=== PATIENT | female | born 1945 | race Caucasian/White ===

== ENCOUNTER 2022-11-14 08:57 | Day surgery (SDC) | payer MEDICARE, SELFPAY ==
[2022-11-14] MEDS: TETRACAINE 0.5% OPHTH 1 DROP EYE-LEFT ×2 (09:26→09:34)
[2022-11-14] MEDS: KETOROLAC OPHTH 0.5% 1 DROP EYE-LEFT ×2 (09:32→09:45)
[2022-11-14 09:46] VITALS: BP 128/77; PULSE 81; RESP 16; TEMP 37.2; O2SAT 95; BMI 28.2
[2022-11-14] MEDS: TETRACAINE 0.5% OPHTH 2 DROP EYE-LEFT (10:17)
[2022-11-14] MEDS: BALANCED SALT IRRIG SOLN 15 ML EYE-LEFT (10:21)
--- NOTE | 2022-11-14 10:21 | P.ANES_ITS ---
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
[2022-11-14 10:49] VITALS: BP 140/70; PULSE 78; RESP 16; TEMP 36.7; O2SAT 98
--- NOTE | 2022-11-14 10:53 | W.PM.OPTPROC ---
Procedure Note Date of procedure: 11/14/22 Will [facility] bill your pro fee for this procedure?: Yes Procedure Description: SURGEON: ROSANNE COUGHLIN MD PREOPERATIVE DIAGNOSIS: NUCLEAR SCLEROTIC CATARACT, LEFT EYE. POSTOPERATIVE DIAGNOSIS: NUCLEAR SCLEROTIC CATARACT, LEFT EYE. NAME OF OPERATION: PHACOEMULSIFICATION OF CATARACT WITH POSTERIOR CHAMBER INTRAOCULAR LENS IMPLANTATION IN THE LEFT EYE. ANESTHESIA: TOPICAL. ESTIMATED BLOOD LOSS: LESS THAN 2 CC. COMPLICATIONS: NONE. PATHOLOGY SPECIMEN: NONE. INDICATIONS: SEE CONSULT NOTE FOR DETAILS. THE RISKS, BENEFITS AND ALTERNATIVES OF THE PROCEDURE WERE EXPLAINED TO THE PATIENT, WHO ELECTED TO PROCEED AND SIGNED INFORMED CONSENT TO DO SO. PROCEDURE: THE PATIENT WAS BROUGHT TO THE PRE-HOLDING AREA WHERE THE LEFT EYE WAS IDENTIFIED THE OPERATIVE EYE. I PLACED MY INITIALS ABOVE THIS EYE. THE PATIENT RECEIVED EYE DROPS CONSISTING OF 0.5% TETRACAINE, 1% TROPICAMIDE, 10% PHENYLEPHRINE, AND 0.5% KETOROLAC. THE PATIENT WAS THEN BROUGHT TO THE OPERATING ROOM WHERE THE LEFT EYE WAS AGAIN IDENTIFIED THE OPERATIVE EYE. THE EYE WAS PREPPED WITH BETADINE AND DRAPED IN THE USUAL STERILE OPHTHALMIC FASHION. A #15 SUPER-SHARP BLADE WAS USED TO CREATE A PARACENTESIS SITE. 1% NON-PRESERVED INTRACAMERAL LIDOCAINE WAS INJECTED INTO THE ANTERIOR CHAMBER. ENDOCOAT WAS INJECTED INTO THE ANTERIOR CHAMBER. A 2.4 MM KERATOME WAS USED TO CREATE A THREE-PLANE SELF-SEALING INCISION 1 MM ANTERIOR TO THE TEMPORAL LIMBUS. A CYSTOTOME WAS USED TO CREATE AN ANTERIOR CAPSULAR LEAFLET. THE UTRATA FORCEPS WERE USED TO EXTEND THIS TO FORM A CONTINUOUS CURVILINEAR CAPSULORRHEXIS. HYDRODISSECTION WAS PERFORMED. THE CATARACT WAS REMOVED WITH PHACOEMULSIFICATION USING THE [id number] TECHNIQUE. THE IRRIGATION AND ASPIRATION TIP WAS USED TO REMOVE THE REMAINING CORTEX. HEALON WAS INJECTED INTO THE CAPSULAR BAG. AN MANNY ZCB00 INTRAOCULAR LENS OF 22.5 DIOPTERS WAS INJECTED INTO THE CAPSULAR BAG. THE IRRIGATION AND ASPIRATION TIP WAS USED TO REMOVE THE REMAINING VISCOELASTIC. BALANCED SALT SOLUTION ON A CANNULA WAS USED TO HYDRATE THE WOUND, AND THE WOUND WAS FOUND TO BE WATERTIGHT. THE PUPIL WAS NOTED TO BE ROUND. DISPOSITION: THE PATIENT WAS TAKEN TO THE RECOVERY ROOM AND DISCHARGED TO HOME IN STABLE CONDITION. THE PATIENT WAS INSTRUCTED TO CALL ME OR GO TO THE EMERGENCY DEPARTMENT WITH ANY SUDDEN CHANGE, INCLUDING DRAMATIC LOSS OF VISION, SEVERE PAIN IN THE EYE OR EYEBROW REGION, NAUSEA, OR VOMITING. THE PATIENT WILL FOLLOW UP IN THE CLINIC TOMORROW MORNING.
--- NOTE | 2022-11-14 11:07 | W.ANESCHARGE ---
Anesthesia Charges Start Date/Time Anesthesia Start Date: 11/14/22 Anesthesia Start Time: 10:14 Stop Date/Time Anesthesia Stop Date: 11/14/22 Anesthesia Stop Time: 10:45 Summary Extremes of Age - Over 70 or under 1: MDA
== END 2022-11-14 11:13 | disposition home or self-care (01) ==
PROVIDERS: PCP Family Medicine; Visit Provider Ophthalmology
PROC: (CPT 66984; principal; 2022-11-14 09:00)
DX: H25.12 Age-related nuclear cataract, left eye (principal)
CPT/HCPCS: 66984; 00142; 99100; A9270; J2250; J3010; V2632

== ENCOUNTER 2022-11-28 09:47 | Day surgery (SDC) | payer MEDICARE, SELFPAY ==
[2022-11-28] MEDS: TETRACAINE 0.5% OPHTH 1 DROP EYE-RIGHT ×2 (09:45→09:50)
[2022-11-28] MEDS: KETOROLAC OPHTH 0.5% 1 DROP EYE-RIGHT ×2 (09:45→09:50)
[2022-11-28 10:11] VITALS: BP 115/72; PULSE 99; RESP 18; TEMP 36.6; O2SAT 98; BMI 28.2
--- NOTE | 2022-11-28 10:20 | SUR.PREOP ---
The eye drops brought by the patient (Ketorolac, Oflaxacin and Prednisolone) are examined and I have determined they are labeled by the patient's pharmacy for this patient as prescribed by the surgeon. The bottles are intact, recently obtained and appear to be correct.
[2022-11-28] MEDS: SODIUM CHLORIDE 0.9 % (FLUSH) 10 ML SYRINGE IVF (10:30)
--- NOTE | 2022-11-28 10:51 | W.ANESCHARGE ---
Anesthesia Charges Start Date/Time Anesthesia Start Date: 11/28/22 Anesthesia Start Time: 11:07 Stop Date/Time Anesthesia Stop Date: 11/28/22 Anesthesia Stop Time: 11:42 Summary Extremes of Age - Over 70 or under 1: MDA
[2022-11-28] MEDS: TETRACAINE 0.5% OPHTH 2 DROP EYE-RIGHT (11:10)
[2022-11-28] MEDS: BALANCED SALT IRRIG SOLN 15 ML EYE-RIGHT (11:16)
--- NOTE | 2022-11-28 11:20 | W.ANESCHARGE ---
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
[2022-11-28 11:38] VITALS: BP 127/79; PULSE 96; RESP 16; TEMP 37.2; O2SAT 98
--- NOTE | 2022-11-28 11:46 | W.PM.OPTPROC ---
Procedure Note Date of procedure: 11/28/22 Will [facility] bill your pro fee for this procedure?: Yes Procedure Description: SURGEON: Radha William MD PREOPERATIVE DIAGNOSIS: Nuclear sclerotic cataract, right eye. POSTOPERATIVE DIAGNOSIS: Nuclear sclerotic cataract, right eye. NAME OF OPERATION: Phacoemulsification of cataract with posterior chamber intraocular lens implantation in the right eye. ANESTHESIA: Topical. ESTIMATED BLOOD LOSS: Less than 2 cc. COMPLICATIONS: None. PATHOLOGY SPECIMEN: None. INDICATIONS: See consult note for details. The risks, benefits and alternatives of the procedure were explained to the patient, who elected to proceed and signed informed consent to do so. PROCEDURE: The patient was brought to the pre-holding area where the right eye was identified as the operative eye. I placed my initials above this eye. The patient received eye drops consisting of 0.5% tetracaine, 1% tropicamide, 10% phenylephrine, and 0.5% ketorolac. The patient was then brought to the operating room where the right eye was again identified as the operative eye. The eye was prepped with Betadine and draped in the usual sterile ophthalmic fashion. A #15 super-sharp blade was used to create a paracentesis site. 1% non-preserved intracameral lidocaine was injected into the anterior chamber. Endocoat was injected into the anterior chamber. A 2.4 mm keratome was used to create a three-plane self-sealing incision 1 mm anterior to the temporal limbus. A cystotome was used to create an anterior capsular leaflet. The Utrata forceps were used to extend this to form a continuous curvilinear capsulorrhexis. Hydrodissection was performed. The cataract was removed with phacoemulsification using the [id number] technique. The irrigation and aspiration tip was used to remove the remaining cortex. Healon was injected into the capsular bag. An MANNY ZCB00 intraocular lens of 23.5 diopters was injected into the capsular bag. The irrigation and aspiration tip was used to remove the remaining viscoelastic. Balanced salt solution on a cannula was used to hydrate the wound, and the wound was found to be watertight. The pupil was noted to be round. DISPOSITION: The patient was taken to the recovery room and discharged to home in stable condition. The patient was instructed to call me or go to the emergency department with any sudden change, including dramatic loss of vision, severe pain in the eye or eyebrow region, nausea, or vomiting. The patient will follow up in the clinic tomorrow morning.
== END 2022-11-28 12:13 | disposition home or self-care (01) ==
LOC: OR 09:47
PROVIDERS: PCP Family Medicine; Visit Provider Ophthalmology
PROC: (CPT 66984; principal; 2022-11-28 09:45)
DX: H25.11 Age-related nuclear cataract, right eye (principal)
CPT/HCPCS: 66984; 00142; 99100; A9270; J2250; J3010; V2632

== ENCOUNTER 2023-01-29 13:05 | Emergency (ER) | payer MEDICARE, SELFPAY ==
[2023-01-29 13:19] VITALS: BP 121/75; PULSE 95; RESP 18; TEMP 36.6; O2SAT 100
--- NOTE | 2023-01-29 13:43 | ED.GENADULT ---
HPI - General Adult General Chief complaint: Back Injury/Pain Stated complaint: Weak, multiple falls across the last days Time Seen by Provider: 01/29/23 13:42 History of Present Illness HPI narrative: presents with daughter. I'm having trouble with my sciatic pain. daughter states she has been falling. pt states she does feel safe in her own home. concern of buttock and leg pain 78-year-old woman presenting to the emergency department along with daughter with concern of falls and weakness. Noting flare of sciatic pain. She says that this is going down her buttock all the way to her foot. Apparently was diagnosed maybe a year ago with sciatic pain however there was what seems to be some origin in the lumbar spine where she was discovered to have had a cyst that was drained. Also is receiving weekly chemotherapy. Is not having dysuria frequency though few months ago did have a urinary tract infection which was contributing to some confusion. Is not describing diarrhea. Does have pregabalin that has continued to take since sciatic diagnosis. It denies hitting her head recently or other areas of pain related to any falls. Diagnosis of breast cancer as noted above. Also on exam I note some darkening around the left eye apparently this is a melanoma per their report. Related Data Home Medications Medication Instructions Recorded Confirmed acetaminophen 500 mg tablet 500 mg PO QID PRN 11/13/22 11/14/22 calcium carbonate 500 mg calcium 500 mg PO DAILY 11/13/22 11/14/22 (1,250 mg) tablet cholecalciferol (vitamin D3) 125 125 mcg PO DAILY 11/13/22 11/14/22 mcg (5,000 unit) tablet cyanocobalamin (vitamin B-12) 1,000 mcg PO DAILY 11/13/22 11/14/22 1,000 mcg tablet imiquimod 5 % topical cream packet 1 applic topical DAILY 11/13/22 11/14/22 levothyroxine 100 mcg tablet 100 mcg PO QAM 11/13/22 01/29/23 loperamide 2 mg capsule 2 mg PO QID 11/13/22 11/28/22 pantoprazole 40 mg tablet,delayed 40 mg PO DAILY 11/13/22 11/14/22 release pregabalin 100 mg capsule 100 mg PO BID 11/13/22 01/29/23 tramadol 50 mg tablet 50 mg PO Q6H PRN 11/13/22 11/14/22 Allergies Allergy/AdvReac Type Severity Reaction Status Date / Time No Known Drug Allergies Allergy Verified 11/28/22 10:01 Review of Systems Status of ROS: Reports: 6 or more systems reviewed and unremarkable except as noted in History and below [facility] Medical History Pre-diabetes ?R73.03 - Prediabetes (ICD-10) Cognitive and behavioral changes ?R41.89 - Other symptoms and signs involving cognitive functions and awareness (ICD-10) ?R46.89 - Other symptoms and signs involving appearance and behavior (ICD-10) Colitis ?K52.9 - Noninfective gastroenteritis and colitis, unspecified (ICD-10) Acute GI bleeding ?K92.2 - Gastrointestinal hemorrhage, unspecified (ICD-10) Carcinoma of left breast ?C50.912 - Malignant neoplasm of unspecified site of left female breast (ICD-10) Hyperopia of both eyes with regular astigmatism and presbyopia ?H52.03 - Hypermetropia, bilateral (ICD-10) ?H52.223 - Regular astigmatism, bilateral (ICD-10) ?H52.4 - Presbyopia (ICD-10) GERD (gastroesophageal reflux disease) ?K21.9 - Gastro-esophageal reflux disease without esophagitis (ICD-10) Hyperlipidemia ?E78.5 - Hyperlipidemia, unspecified (ICD-10) 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 - Autoimmune thyroiditis (ICD-10) Drusen (degenerative) of macula, unspecified eye ?H35.369 - Drusen (degenerative) of macula, unspecified eye (ICD-10) Surgical History History of bilateral mastectomy ?Z90.13 - Acquired absence of bilateral breasts and nipples (ICD-10) History of hysterectomy ?Z90.710 - Acquired absence of both cervix and uterus (ICD-10) History of cholecystectomy ?Z90.49 - Acquired absence of other specified parts of digestive tract (ICD-10) H/O breast augmentation ?Z98.82 - Breast implant status (ICD-10) History of bladder repair surgery ?Z98.890 - Other specified postprocedural states (ICD-10) History of appendectomy ?Z90.49 - Acquired absence of other specified parts of digestive tract (ICD-10) Social History Smoking Status: Former smoker Do you use any of these nicotine containing products: None Second hand tobacco smoke exposure: No How often do you have a drink containing alcohol: never AUDIT-C Alcohol total score: 0 Non-prescribed substance use: denies use Caffeine: Yes Are you using contraception or practicing any form of control: No service: No Exam Narrative: Exam Narrative: Pleasant. NAD. Seems fatigued. Answering questions little more slowly methodically. Breathing easily. Lungs appear to be clear although I thought I caught some clearing crepitus in the left midlung field. Oropharynx is moist. There is this irregular darkening in the skin to the lower left of the eye/outer zygomatic arch area. Head covered by stocking cap. Appears atraumatic other than lesion is noted above. Nerves 2 through 12 are intact. Heart in elevated rate but regular rhythm. Abdomen is protuberant soft and nontender. Does have some reproducible mild discomfort over the sacrum. No deformity appreciated. No buttock/piriformis area pain. Straight leg raise appears to be negative. Stiff in musculoskeletal testing almost rigid like Parkinson's. Const: Vital Signs, click to edit/add: Vital Signs - 24 hr 01/29/23 13:19 Temperature 97.8 F Pulse Rate [Right Pulse Oximeter] 95 Respiratory Rate 18 Blood Pressure [Ri ght Upper Arm] 121/75 Pulse Oximetry 100 Oxygen Delivery Me thod Room Air Documenting provider has reviewed patient's vital signs: yes Course Vital Signs Vital signs: Initial Vital Signs Temperature 97.8 F 01/29/23 13:19 Temperature Source Temporal Artery Scan 01/29/23 13:19 Pulse Rate 95 01/29/23 13:19 Respiratory Rate 18 01/29/23 13:19 Blood Pressure 121/75 01/29/23 13:19 Blood Pressure Mean 90 01/29/23 13:19 Blood Pressure Position Sitting 01/29/23 13:19 Pulse Oximetry 100 01/29/23 13:19 Oxygen Delivery Method Room Air 01/29/23 13:19 Vital Signs Temperature 97.8 F 01/29/23 13:19 Pulse Rate 95 01/29/23 13:19 Respiratory Rate 18 01/29/23 13:19 Blood Pressure 121/75 01/29/23 13:19 Pulse Oximetry 100 01/29/23 13:19 Oxygen Delivery Method Room Air 01/29/23 13:19 Temperature 97.8 F 01/29/23 13:19 Pulse Rate 95 01/29/23 13:19 Respiratory Rate 18 01/29/23 13:19 Blood Pressure 121/75 01/29/23 13:19 Pulse Oximetry 100 01/29/23 13:19 Oxygen Delivery Method Room Air 01/29/23 13:19 Medications Administered Medications: Discontinued Medications Generic Name Dose Route Start Last Admin Trade Name Freq PRN Reason Stop Dose Admin Hydrocodone Bitart/Acetaminophen 2 tab 01/29/23 13:54 01/29/23 14:25 Hydrocodone-Acetamin 5-325 Mg 1 Tab PO 01/29/23 13:55 2 tab ONCE ONE Administration Heparin Sodium (Porcine) 500 unit 01/29/23 15:35 01/29/23 15:50 Heparin 500 Unit/5 Ml Syringe IVF 01/29/23 15:36 500 unit ONCE ONE Administration Sodium Chloride 1,000 mls @ 1,000 mls/hr 01/29/23 13:54 01/29/23 15:23 0.9 % Sodium Chloride 1000 Ml IV 01/29/23 14:53 Infused .Q1H ONE Infusion Medical Decision Making MDM Narrative Medical decision making narrative: Think would be prudent to look for electrolyte abnormalities other indication of infection as well. Urinalysis. This might be contributing to weakness or exacerbating affect of formally diagnosed ?sciatica?. This does seem though to originate higher in the chain i.e. the lumbar spine. Not sure that there is an area that I would want image otherwise outside of an MRI which I would not anticipate being able to obtain today. Will test with a couple tablets of Sassafras. Has had tramadol available in the past. Overall is improved during time in the emergency department treatment as above. Labs reviewed and reassuring without notable electrolyte abnormalities and pending urinalysis on departure See patient discharge plan Lab Data Lab results reviewed: Yes I reviewed the patient's lab results Labs: Lab Results 01/29/23 01/29/23 Range/Units 14:25 15:38 WBC 3.66 L (4.50-11.00) K/uL RBC 3.35 L (4.00-5.20) m/uL Hgb 10.8 L (12.0-16.0) gm/dL Hct 35.4 (33.0-51.0) % MCV 106 H (80-100) fL MCH 32 (26-34) pg MCHC 31 L (32-36) gm/dL RDW Coeff of [place] 14.2 (11.5-15.5) % Plt Count 312 (140-440) K/uL Neut % (Auto) 61.8 (42.0-72.0) % Lymph % (Auto) 17.2 L (20-44) % [facility] % (Auto) 15.0 H (0.0-11.0) % Eos % (Auto) 3.6 (0.0-7.0) % Baso % (Auto) 0.5 (0.0-3.0) % Neut # (Auto) 2.30 (1.7-7.0) K/uL Lymph # (Auto) 0.60 L (0.90-2.90) K/uL [facility] # (Auto) 0.50 (0.00-0.90) K/UL Eos # (Auto) 0.10 (0.00-0.50) K/uL Baso # (Auto) 0.00 (0.00-0.30) K/uL Abs Immat Gran (auto) 0.10 (0.00-0.30) K/uL Imm/Tot Granulo (auto) 1.9 % Diff Slide Review Acceptable Review (Acceptable) Sodium 138 (135-149) mmol/L Potassium 4.4 (3.6-5.1) mmol/L Chloride 106 (96-114) mmol/L Carbon Dioxide 24 (20-32) mmol/L Anion Gap 8 (7-15) mEq/L BUN 28 (7-30) mg/dL Creatinine 0.7 (0.5-1.5) mg/dL Estimated GFR 87 ml/min Glucose 67 (60-115) mg/dL Calcium 9.3 (8.4-10.6) mg/dL Magnesium 2.1 (1.5-2.6) mg/dL C-Reactive Protein 0.8 (0.5-1.0) mg/dL Urine Color Yellow (Yellow) Urine Appearance Cloudy A (Clear) Urine pH 5.5 (5.0-8.5) Ur Specific [place] 1.020 (1.000-1.030) Urine Protein Negative (Negative) Urine Glucose (UA) Negative (Negative) Urine Ketones Negative (Negative) Urine Blood Negative (Negative) Urine Nitrite Negative (Negative) Urine Bilirubin Negative (Negative) Urine Urobilinogen 0.2 (0.2-1.0) Ur Leukocyte Esterase 1+ A (Negative) Urine RBC 2-5 A (0-2) Urine WBC 25-50 A (0-5) Urine WBC Clumps Few A (None) Ur Squamous Epith Cells Moderate A (None-Few) Amorphous Sediment Few A (None) Urine Bacteria Moderate A (None) Coarse Granular Casts Few A (None) SARS-CoV-2 (PCR) Negative SARS-CoV-2 (Negative) Influenza Type A (PCR) Negative PCR FLU A (Negative) Influenza Type B (PCR) Negative PCR FLU B (Negative) RSV (PCR) Negative PCR RSV (Negative) Discharge Plan Discharge Clinical Impression: Radicular leg pain, Weakness Patient Disposition: Home w/ Parent or Adult Condition: Improved Additional Instructions: I would make follow-up with primary care provider or with whoever treated your back last time. Sassafras and prednisone from [facility]. Remember that each tablet of Sassafras contains 325 mg of acetaminophen. Can otherwise temporarily and maybe with a little food take up to 800 mg of ibuprofen per dose or up to 1000 mg of acetaminophen per dose. Alternative to the ibuprofen might be up to 500 mg naproxen 2 times daily. The Sassafras as an opiate can make you tired and constipated. Might want to take a tablet or 2 of senna to stimulate your bowels on the days that you are using the Sassafras. I will call you to discuss results of urinalysis if needed. Prescriptions: No Action loperamide 2 mg capsule 2 mg PO QID cyanocobalamin (vitamin B-12) 1,000 mcg tablet 1,000 mcg PO DAILY tramadol 50 mg tablet 50 mg PO Q6H PRN acetaminophen 500 mg tablet 500 mg PO QID PRN levothyroxine 100 mcg tablet 100 mcg PO QAM calcium carbonate 500 mg calcium (1,250 mg) tablet 500 mg PO DAILY imiquimod 5 % cream in packet 1 applic topical DAILY pantoprazole 40 mg tablet,delayed release (DR/EC) 40 mg PO DAILY pregabalin 100 mg capsule 100 mg PO BID cholecalciferol (vitamin D3) 125 mcg (5,000 unit) tablet 125 mcg PO DAILY Follow Up/Referrals: Lilliam Butler DO [Primary Care Provider] - Stand Alone Forms: [facility] Info Instructions
[2023-01-29] MEDS: HYDROCODONE-ACETAMIN 5-325 MG 1 TAB 2 TAB PO (14:25)
[2023-01-29] MEDS: 0.9 % SODIUM CHLORIDE 1000 ml 1,000 ML IV (14:35)
[2023-01-29 14:41] LABS: Basophils Percent Auto 0.5 % (0.0-3.0); Eosinophils Percent Auto 3.6 % (0.0-7.0); Hematocrit 35.4 % (33.0-51.0); Hemoglobin* 10.8 gm/dL (12.0-16.0); Immature Granulocytes Pct Auto 1.9 %; Lymphocytes Percent Auto 17.2 % (20-44); Mean Corpuscular HGB Conc 31 gm/dL (32-36); Mean Corpuscular Hemoglobin 32 pg (26-34); Mean Corpuscular Volume 106 fL (80-100); Neutrophils Percent Auto 61.8 % (42.0-72.0); Platelet Count* 312 K/uL (140-440); RDW Coefficient of Variation % 14.2 % (11.5-15.5); Red Blood Count 3.35 m/uL (4.00-5.20); White Blood Count* 3.66 K/uL (4.50-11.00)
[2023-01-29 14:43] LABS: Slide Review Reflex Yes
[2023-01-29 14:59] LABS: Chloride* 106 mmol/L (96-114); Potassium* 4.4 mmol/L (3.6-5.1); Sodium* 138 mmol/L (135-149)
[2023-01-29 15:02] LABS: Anion Gap 8 mEq/L (7-15); Blood Urea Nitrogen* 28 mg/dL (7-30); Carbon Dioxide* 24 mmol/L (20-32); Creatinine* 0.7 mg/dL (0.5-1.5); Estimated Glomerular Filt Rate 87 ml/min
[2023-01-29 15:03] LABS: Calcium* 9.3 mg/dL (8.4-10.6); Glucose* 67 mg/dL (60-115); Magnesium* 2.1 mg/dL (1.5-2.6)
[2023-01-29 15:04] LABS: Slide Review Acceptable Review (Acceptable)
[2023-01-29 15:05] LABS: C Reactive Protein* 0.8 mg/dL (0.5-1.0)
[2023-01-29 15:18] LABS: PCR FLU A Negative PCR FLU A (Negative); PCR FLU B Negative PCR FLU B (Negative); PCR RSV Negative PCR RSV (Negative); SARS PCR* Negative SARS-CoV-2 (Negative)
[2023-01-29] MEDS: HEPARIN 500 UNIT/5 ML SYRINGE IVF (15:50)
[2023-01-29 15:52] LABS: Appearance Urine Cloudy (Clear); Bilirubin Urine Negative (Negative); Blood Urine Negative (Negative); Color Urine Yellow (Yellow); Glucose Urine Negative (Negative); Ketones Urine Negative (Negative); Leukocyte Esterase Urine 1+ (Negative); Nitrite Urine Negative (Negative); Protein Urine Negative (Negative); Urobilinogen Urine 0.2 (0.2-1.0); pH Urine 5.5 (5.0-8.5)
[2023-01-29 16:12] LABS: Squamous Epithelial Cell Urine Moderate (None-Few); WBC Clumps Urine Few; WBC Urine 25-50 (0-5)
[2023-01-29 16:13] LABS: Amorphous Sediment Urine Few; Bacteria Urine Moderate; Coarse Granular Casts Urine Few
== END 2023-01-29 15:53 | disposition home or self-care (01) ==
PROVIDERS: Emergency Provider Family Medicine; PCP Family Medicine
DX: M54.16 Radiculopathy, lumbar region (principal)
CPT/HCPCS: 36415; 80048; 81001; 83735; 85025; 86140; 87086; 87631; 95992; 99283; 99284; A9270; J1642; J7030

== ENCOUNTER 2023-06-06 06:44 | Outpatient (CLI) | payer MEDICARE, SELFPAY | END 2023-06-06 06:45 | disposition home or self-care (01) | LOC: AMB 06-09 11:18 | PROVIDERS: PCP Family Medicine; Visit Provider Family Medicine | DX: R41.82 Altered mental status, unspecified (principal) | CPT/HCPCS: A0425; A0429 ==

== ENCOUNTER 2023-06-06 07:33 | Emergency (ER) | payer MEDICARE, SELFPAY ==
[2023-06-06 07:38] VITALS: BP 121/70; PULSE 107; RESP 18; TEMP 36.4; O2SAT 93; BMI 25.7
--- NOTE | 2023-06-06 08:47 | ED.GENADULT ---
HPI - General Adult General Chief complaint: Fall/Minor Trauma Stated complaint: Fall Time Seen by Provider: 06/06/23 08:09 History of Present Illness HPI narrative: Patient is a 78-year-old woman who was on hospice secondary to metastatic breast cancer who presents after being found on the floor today at home. She is a DNR DNI comfort cares only and states she is not injured is not having any pain. There has been increasing conflict between she and her daughter who provides primary care for the patient at home. Patient also has home hospice services. Patient states she is fine would like to be allowed to return home without further evaluation. She is on stable medications and is not certain why she stumbled last night but does not feel like she is injured in any way. She did not hit her head and did not lose consciousness. Related Data Home Medications Medication Instructions Recorded Confirmed acetaminophen 500 mg tablet 500 mg PO QID PRN 11/13/22 06/06/23 calcium carbonate 500 mg PO DAILY 11/13/22 06/06/23 cholecalciferol (vitamin D3) 125 125 mcg PO DAILY 11/13/22 06/06/23 mcg (5,000 unit) tablet cyanocobalamin (vitamin B-12) 1,000 mcg PO DAILY 11/13/22 06/06/23 1,000 mcg tablet imiquimod 5 % topical cream packet 1 applic topical DAILY 11/13/22 11/14/22 levothyroxine 100 mcg tablet 100 mcg PO QAM 11/13/22 01/29/23 loperamide 2 mg capsule 2 mg PO QID 11/13/22 11/28/22 pantoprazole 40 mg tablet,delayed 40 mg PO DAILY 11/13/22 11/14/22 release pregabalin 100 mg capsule 100 mg PO BID 11/13/22 06/06/23 tramadol 50 mg tablet 50 mg PO Q6H PRN 11/13/22 06/06/23 dexamethasone 4 mg tablet 4 mg PO DAILY 06/06/23 06/06/23 haloperidol 0.5 mg tablet 0.25 mg PO Q4H 06/06/23 06/06/23 morphine 15 mg tablet,extended 15 mg PO Q12H 06/06/23 06/06/23 release morphine concentrate 100 mg/5 mL 5 mg PO Q3H 06/06/23 06/06/23 (20 mg/mL) oral solution nitrofurantoin 100 mg PO DAILY 06/06/23 06/06/23 monohydrate/macrocrystals 100 mg capsule propranolol 10 mg tablet 10 mg PO Q12H 06/06/23 06/06/23 sennosides 8.6 mg tablet (senna) 8.6 mg PO DAILY 06/06/23 06/06/23 Allergies Allergy/AdvReac Type Severity Reaction Status Date / Time lorazepam [From Ativan] AdvReac Severe Verified 06/06/23 08:06 Review of Systems Status of ROS: Reports: 10 or more systems reviewed and unremarkable except as noted in History and below [facility] Medical History Pre-diabetes ?R73.03 - Prediabetes (ICD-10) Cognitive and behavioral changes ?R41.89 - Other symptoms and signs involving cognitive functions and awareness (ICD-10) ?R46.89 - Other symptoms and signs involving appearance and behavior (ICD-10) Colitis ?K52.9 - Noninfective gastroenteritis and colitis, unspecified (ICD-10) Acute GI bleeding ?K92.2 - Gastrointestinal hemorrhage, unspecified (ICD-10) Carcinoma of left breast ?C50.912 - Malignant neoplasm of unspecified site of left female breast (ICD-10) Hyperopia of both eyes with regular astigmatism and presbyopia ?H52.03 - Hypermetropia, bilateral (ICD-10) ?H52.223 - Regular astigmatism, bilateral (ICD-10) ?H52.4 - Presbyopia (ICD-10) GERD (gastroesophageal reflux disease) ?K21.9 - Gastro-esophageal reflux disease without esophagitis (ICD-10) Hyperlipidemia ?E78.5 - Hyperlipidemia, unspecified (ICD-10) 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 - Autoimmune thyroiditis (ICD-10) Drusen (degenerative) of macula, unspecified eye ?H35.369 - Drusen (degenerative) of macula, unspecified eye (ICD-10) Surgical History History of bilateral mastectomy ?Z90.13 - Acquired absence of bilateral breasts and nipples (ICD-10) History of hysterectomy ?Z90.710 - Acquired absence of both cervix and uterus (ICD-10) History of cholecystectomy ?Z90.49 - Acquired absence of other specified parts of digestive tract (ICD-10) H/O breast augmentation ?Z98.82 - Breast implant status (ICD-10) History of bladder repair surgery ?Z98.890 - Other specified postprocedural states (ICD-10) History of appendectomy ?Z90.49 - Acquired absence of other specified parts of digestive tract (ICD-10) Social History Smoking Status: Former smoker Do you use any of these nicotine containing products: None Second hand tobacco smoke exposure: No How often do you have a drink containing alcohol: never AUDIT-C Alcohol total score: 0 Non-prescribed substance use: denies use Caffeine: Yes Are you using contraception or practicing any form of control: No service: No Exam Narrative: Exam Narrative: EXAM GENERAL: Patient appears comfortable and well. EYES: No scleral icterus. LYMPH: No supraclavicular or cervical lymphadenopathy. SKIN: Visible skin seen during exam normal or with benign process only. EXT: No dependent lower extremity pedal edema. HEART: Regular rate and rhythm with no murmurs, rubs, or gallops. LUNGS: Clear to auscultation bilaterally with no crackles or wheezes. ABD: Soft, non tender, non distended. PSYCH: Good eye contact, speech is not pressured. Const: Vital Signs, click to edit/add: Vital Signs - 24 hr 06/06/23 07:38 Temperature 97.5 F L Pulse Rate [Left P ulse Oximeter] 107 H Respiratory Rate 18 Blood Pressure [Le ft Upper Arm] 121/70 Pulse Oximetry 93 Oxygen Delivery Me thod Room Air Course Course ED Course: Patient seen examined. Patient requests no further testing but is able to ambulate on her normal baseline with no new focal neurologic defects. Vital Signs Vital signs: Initial Vital Signs Temperature 97.5 F L 06/06/23 07:38 Temperature Source Temporal Artery Scan 06/06/23 07:38 Pulse Rate 107 H 06/06/23 07:38 Pulse Rhythm Regular 06/06/23 07:38 Pulse Strength 3+ Normal 06/06/23 07:38 Respiratory Rate 18 06/06/23 07:38 Blood Pressure 121/70 06/06/23 07:38 Blood Pressure Mean 87 06/06/23 07:38 Blood Pressure Position Sitting 06/06/23 07:38 Pulse Oximetry 93 06/06/23 07:38 Oxygen Delivery Method Room Air 06/06/23 07:38 Vital Signs Temperature 97.5 F L 06/06/23 07:38 Pulse Rate 107 H 06/06/23 07:38 Respiratory Rate 18 06/06/23 07:38 Blood Pressure 121/70 06/06/23 07:38 Pulse Oximetry 93 06/06/23 07:38 Oxygen Delivery Method Room Air 06/06/23 07:38 Temperature 97.5 F L 06/06/23 07:38 Pulse Rate 107 H 06/06/23 07:38 Respiratory Rate 18 06/06/23 07:38 Blood Pressure 121/70 06/06/23 07:38 Pulse Oximetry 93 06/06/23 07:38 Oxygen Delivery Method Room Air 06/06/23 07:38 Medical Decision Making MDM Narrative Medical decision making narrative: Patient is 78-year-old woman with known history of metastatic breast cancer who presents after being found on the floor at home. Patient requests no further testing and is at her baseline with no defects and no pain. After a brief conversation with her daughter about the care that is being provided at home I do feel like Kavitha is in a safe situation and will be discharging her to her daughter's care. Differential diagnosis includes but not limited to subdural hematoma epidural hematoma subarachnoid hematoma cerebral bleed stroke skull fracture her hip fracture. Discharge Plan Discharge Clinical Impression: Fall Patient Disposition: Home w/ Parent or Adult Condition: Stable Instructions: Fall Prevention for Older Adults (ED) Activity Level: No Restrictions Discharge Diet: Regular Prescriptions: No Action loperamide 2 mg capsule 2 mg PO QID cyanocobalamin (vitamin B-12) 1,000 mcg tablet 1,000 mcg PO DAILY tramadol 50 mg tablet 50 mg PO Q6H PRN acetaminophen 500 mg tablet 500 mg PO QID PRN levothyroxine 100 mcg tablet 100 mcg PO QAM calcium carbonate 500 mg calcium (1,250 mg) tablet 500 mg PO DAILY imiquimod 5 % cream in packet 1 applic topical DAILY pantoprazole 40 mg tablet,delayed release (DR/EC) 40 mg PO DAILY pregabalin 100 mg capsule 100 mg PO BID cholecalciferol (vitamin D3) 125 mcg (5,000 unit) tablet 125 mcg PO DAILY morphine 15 mg tablet extended release 15 mg PO Q12H dexamethasone 4 mg tablet 4 mg PO DAILY nitrofurantoin monohyd/m-cryst 100 mg capsule 100 mg PO DAILY propranolol 10 mg tablet 10 mg PO Q12H sennosides [senna] 8.6 mg tablet 8.6 mg PO DAILY haloperidol 0.5 mg tablet 0.25 mg PO Q4H morphine concentrate 100 mg/5 mL (20 mg/mL) solution 5 mg PO Q3H Follow Up/Referrals: Lilliam Butler DO [Primary Care Provider] - Stand Alone Forms: [facility] Info Instructions
== END 2023-06-06 09:08 | disposition home or self-care (01) ==
PROVIDERS: Emergency Provider Internal Medicine; PCP Family Medicine
DX: Z71.1 Person with feared health complaint in whom no diagnosis is made (principal); W19.XXXA Unspecified fall, initial encounter
CPT/HCPCS: 99281; 99282; 99283